=== PATIENT | female | born 1945 | race Two or more races ===

== ENCOUNTER 2018-09-12 07:19 | Inpatient (IN) | payer MEDICARE, OTHER ==
[2018-09-12] VITALS (26 sets, daily range): BP systolic 101–125; BP diastolic 51–63; PULSE 65–100; RESP 11–28; Ht 162.6 cm; Wt 81.2 kg
[~2018-09-12] VITALS: Ht 162.6 cm; Wt 81.2 kg
[~2018-09-12 07:19] MED LIST: ACETAMINOPHEN 500 MG TAB PO ONE; CEFAZOLIN 1 GM/50 ML (PMX) 50 ML IVPB ONE; DEXAMETHASONE 4 MG/ML 1 ML INJ IV ONE; HIP PAIN COCKTAIL VANCO INJ SCH; LACTATED RINGER'S 1,000 ML IV SCH; LANSOPRAZOLE 30 MG CAP PO ONE; ONDANSETRON 4 MG INJ IV ONE; TRANEXAMIC ACID 1GM/100ML(PMX) 100 ML INTRA-OP X1 IVPB ONE; oxyCODONE (CR) 10 MG TAB [oxyCONTIN] PO ONE
[2018-09-12] MEDS ORDERED: LOSA25TA12 PO (08:44)
[2018-09-12] MEDS ORDERED: CLOP75TA27 PO (08:44)
[2018-09-12] MEDS ORDERED: ASPI81TA52 PO (08:45)
[2018-09-12] MEDS ORDERED: ATOR20TA38 PO (08:45)
[2018-09-12] MEDS ORDERED: POLYMYXIN B 500000 UNIT INJ ONE (10:38)
--- NOTE | 2018-09-12 10:53 | HPN ---
Date/Time of Note Date/Time of Note DATE: 09/12/18 TIME: 10:53 Interval H&P Admission Note Pt. seen H&P reviewed: No system changes JAZIEL BRIGHT MD September 12, 2018 10:53
--- NOTE | 2018-09-12 11:02 | PREAC ---
Date/Time of Note Date/Time of Note DATE: 09/12/18 TIME: 11:00 Anesthesia Eval and Record Evaluation Time Pre-Procedure Interview DATE: 09/12/18 TIME: 11:00 Age 73 Sex female NPO: 8 hrs Preoperative diagnosis Right kneee primary OA Planned procedure right knee replacement Past Medical History Past Medical History: Includes Cardio: HTN, Dyslipidemia, CABG, PTCA/Stent Surgery & Anesthesia Issues No known issue Meds Anticoagulation: Yes (stop 15 plavix) Beta Richa within 24 hr: Yes Reason Beta Richa not given: Pt. not on B-Richa Reported Medications Aspirin (Low Dose Aspirin) 81 Mg Tablet.dr, 81 MG PO DAILY, #30 TAB 09/12/18 Atorvastatin Calcium* (Atorvastatin Calcium*) 20 Mg Tablet, 20 MG PO QHS, #30 TAB 09/12/18 Clopidogrel Bisulfate (Clopidogrel) 75 Mg Tablet, 75 MG PO DAILY, #30 TAB 09/12/18 Losartan Potassium* (Losartan Potassium*) 25 Mg Tablet, 25 MG PO BID, TAB 09/12/18 Current Medications Lactated Ringer's 1,000 ml @ 125 mls/hr Q8H IV Last administered on 09/12/18at 09:13; Admin Dose 125 MLS/HR; Start 09/12/18 at 07:00; Stop 09/12/18 at 14:59 Ropivacaine/ Morphine Sulfate/ Clonidine HCl/ Epinephrine/ Ketorolac Tromethamine/ Vancomycin HCl/ Sodium Chloride INTRA-OP INJ ; Start 09/12/18 at 07:00; Stop 09/12/18 at 16:00 Meds reviewed: Yes Allergies Coded Allergies: No Known Allergy (Unverified , 09/12/18) Allergies Reviewed: Yes Labs/Studies Labs Reviewed: Reviewed by anesthesiologist test: N/A Studies: ECG (sr), CXR (nl) Pre-procedure Exam Last vitals Vital Signs Date Temp Pulse Resp B/P (MAP) Pulse Ox O2 O2 Flow FiO2 Time Delivery Rate 09/12/18 97.1 65 16 122/63 99 Room Air 09:44 (82) Airway: Adequate mouth opening Mallampati: Mallampati I Teeth: Normal Lung: Normal Heart: Normal ASA Physical Status ASA physical status: 2 Emergency: None Planned Anesthetic General/MAC: LMA Neuraxial: Spinal Nerve block: Femoral (right) Planned Pain Management Single shot nerve block, Parenteral pain med Pre-operative Attestations Prior to commencing anesthesia and surgery, the patient was re-evaluated, there was verification of: *The patient's identity *The results of appropriate recent lab work and preoperative vital signs *The above evaluation not changing prior to induction *Anesthetic plan, risk benefits, alternative and complications discussed with patient/family; questions answered; patient/family understands, accepts and wishes to proceed. RICH HERNANDEZ MD September 12, 2018 11:02
[2018-09-12] MEDS ORDERED: ETOMIDATE 20 MG INJ ONE (11:06)
[2018-09-12] MEDS ORDERED: MIDAZOLAM 1 MG/ML 2 ML INJ ONE (11:06)
[2018-09-12] MEDS ORDERED: CEFAZOLIN 1 GM INJ ONE (11:06)
[2018-09-12] MEDS ORDERED: FENTAnyl 50 MCG/ML VIAL ONE (11:06)
[2018-09-12] MEDS ORDERED: ONDANSETRON 4 MG INJ ONE (11:07)
[2018-09-12] MEDS ORDERED: morphine SULFATE/PF (10 MG/10 ML) INJ ONE (11:07)
[2018-09-12] MEDS ORDERED: METOCLOPRAMIDE 10 MG INJ ONE (11:07)
[2018-09-12] MEDS ORDERED: TRANEXAMIC ACID 1GM/100ML(PMX) 200 ML ONE (11:14)
[2018-09-12] MEDS ORDERED: DIPHENHYDRAMINE 50 MG INJ IV PRN (11:30)
[2018-09-12] MEDS ORDERED: ONDANSETRON 4 MG INJ IV PRN (11:30)
[2018-09-12] MEDS ORDERED: MEPERIDINE 25 MG INJ IV PRN (11:30)
[2018-09-12] MEDS ORDERED: HYDROmorphONE 1 MG/5 ML IV SYRINGE IV PRN ×3 (11:30)
[2018-09-12] MEDS ORDERED: BACITRACIN 50000 UNITS INJ IRR ONE (11:43)
[2018-09-12] MEDS: TRANEXAMIC ACID 1GM/100ML(PMX) 100 ML PRE-OP X1 IVPB ONE ×2 (11:46→11:47)
[2018-09-12] MEDS ORDERED: ROPIVACAINE 0.2% 20 ML VIAL ONE (12:24)
[2018-09-12] MEDS ORDERED: PHENYLephrine (100 MCG/ML) 10ML SYG ONE (12:33)
--- NOTE | 2018-09-12 12:44 | SIPON ---
Date/Time of Note Date/Time of Note DATE: 09/12/18 TIME: 12:43 Operative Report Preoperative Diagnosis Right Knee Osteoarthritis Postoperative Diagnosis Same Operation/Procedure Performed Right Total Knee Arthroplasty Surgeon Riya Bright MD shop assistant Dash Bullard Second assist: ALEKSANDR PELAYO Anesthesia: spinal Estimated blood loss: 250 - 300 ml's Transfusion Required none Specimen bone Grafts/Implants none Complications none RIYA BRIGHT MD September 12, 2018 12:44
--- NOTE | 2018-09-12 12:50 | OPR ---
Date/Time of Note Date/Time of Note DATE: 09/12/18 TIME: 12:48 Operative Report Free Text/Dictation DATE OF OPERATION: September 12, 2018 SURGEON: Jaziel Bright MD DIESEL MAINTENANCE ELECTRICIAN: Dash AMARO DIESEL MAINTENANCE ELECTRICIAN: LEONA Carlson PREOPERATIVE DIAGNOSIS: Right knee osteoarthritis. POSTOPERATIVE DIAGNOSIS: Right knee osteoarthritis. PROCEDURES PERFORMED: Right total knee arthroplasty, CPT code 81295. ANESTHESIOLOGIST: Dr. Quinn ANESTHESIA: Spinal. ESTIMATED BLOOD LOSS: 250 mL. COMPLICATIONS: None. SPECIMENS: Resected bone. DISPOSITION: PACU in stable condition. TOURNIQUET TIME: 33 minutes at 250 mmHg. IMPLANT USED: [employer] size 3 Alondra tibial baseplate, size 5 narrow posterior stabilized Oxinium femur, size 9 mm high flexion polyethylene, size 35 mm patella. INDICATION FOR PROCEDURE: This is an 73-year-old female with end-stage osteoarthritis of the right knee who had failed nonoperative management. Risks, benefits, alternatives of surgical intervention were discussed with the patient and informed consent was obtained. The risks of surgery include but are not limited to infection, deep venous thrombosis, pulmonary embolism, damage to nerves and blood vessels, numbness around incision site, stiffness of knee, need for total knee manipulation under anesthesia, need for blood transfuion, heart attack, stroke, risks associated with anesthesia, implant loosening, wear of prosthesis, need for revision surgery, and . DESCRIPTION OF PROCEDURE: The patient was met in the preoperative suite. The correct operative site was confirmed and marked. The patient was then brought into operating room. After induction of anesthesia, the patient was placed in the supine position on the operating room table. A tourniquet was applied to right upper thigh. The right lower extremity was prepped and draped in the usual sterile fashion. Before starting, a timeout was taken to identify the correct operative site and confirm preoperative antibiotics consisting of 1 g of IV Ancef, along with 1 g of tranexamic acid were administered. At this point, the right leg was elevated and exsanguinated with an Esmarch and tourniquet was then insufflated for the above noted time. A midline incision was made and median parapatellar arthrotomy was then completed. The lateral patellar r etinacular ligaments were released. A sleeve of tissue was released from the medial proximal tibia. The cruciate ligaments and the menisci were then excised. At this point, the custom distal femur cutting block was then pinned and 9.5 mm was resected from the distal femur. The 4-in-1 cutting block, size 5 was then placed. An alea wing was used to confirm that notching of the anterior cortex of the femur would not occur. The anterior and posterior condylar cuts were completed followed by the anterior and posterior chamfer cuts. The osteophytes were then removed with a rongeur. At this point, the tibia was subluxed anteriorly. Appropriate retractors were placed. The custom tibial cutting block was then pinned. The drop was used to ensure the correct alignment. Approximately 11 mm was resected off the lateral tibial plateau and 6 mm off the medial tibial plateau. Osteophytes were then removed. At this point, the flexion extension gaps were checked with a 9 mm gap loom checker and noted to be equal. Next, trial 5 narrow femur was then pinned and the box cut was then completed. The tibia was then subluxed anteriorly and measured to size 3. The tibial tray was then pinned and a keel was then punched. The trial components were placed with a 9 mm polyethylene and noted to have full extension and greater than 120 degrees of flexion. The patella was then subluxed laterally and sized to 22 mm. Approximately, 8 mm was resected. The patellar was sized to 35 mm. The button was placed and noted to have excell ent patellar tracking. The trial components were removed. All bony surfaces were pulse lavaged and dried. The appropriate size components were then cemented and the knee was held in extension with a 9 mm trial polyethylene until the cement cured. Once the cement had cured, the trial polyethylene was removed and the appropriate size polyethylene was then placed. The tranexamic acid was redosed. The cocktail was then injected. The extensor mechanism was closed using #1 Stratafix and the subcutaneous tissue with 2-0 Vicryl and the skin with 4-0 Monocryl. Steri-Strips were applied along with a sterile dressing. There were no complications. The patient was transferred to PACU in stable condition. POSTOPERATIVE CARE: The patient will be weightbearing as tolerated. The patient will work with physical therapy, and will receive two additional doses of IV antibiotics along with aspirin 81 mg p.o. b.i.d. for 6 weeks. Upon discharge, patient will follow up in my office within 2 weeks postoperatively. JAZIEL BRIGHT MD September 12, 2018 12:50
[2018-09-12] MEDS: GABAPENTIN 100 MG CAP PO SCH ×2 (13:00→21:11)
[2018-09-12] MEDS ORDERED: NACL 0.9% 3 ML SYG IV SCH (13:00)
[2018-09-12] MEDS ORDERED: NALOXONE (0.4 MG/ML) INJ IV PRN (13:00)
[2018-09-12] MEDS ORDERED: KETOROLAC 15 MG INJ IV PRN (13:00)
[2018-09-12] MEDS: CEFAZOLIN 2 GM/50 ML (PMX) 50 ML IVPB SCH ×2 (13:52→21:08)
[2018-09-12] MEDS: ONDANSETRON 4 MG INJ IV SCH ×2 (14:07→19:54)
--- NOTE | 2018-09-12 16:44 | CONS ---
Assessment/Plan Assessment/Plan Hospital Course (Demo Recall) 73 yo F admitted for elective RTKA for severe R OA being admitted postop for whom we are consulted for management of medical conditions: 1. HTN 2. Dyslipidemia 3. CAD s.p CABG plan: recommend low cholesterol, low fat diet resume home meds and titrate as indicated serial labs continue routine post op per otrtho further recommendations per course Thanks for the Consult. We will follow with you. Consultation Date/Type/Reason Admit Date/Time September 12, 2018 at 07:23 Date/Time of Note DATE: 09/12/18 TIME: 16:36 Hx of Present Illness 70-year-old female who was admitted for elective right total knee arthroplasty due to end-stage osteoarthritis of the right knee that had failed nonoperative management. She is status post surgery, and is being admitted to the medical surgical floor for postoperative care and interventions. We are being consulted for management of her medical conditions. Medical problems include hypertensio n, dyslipidemia, coronary artery disease status post CABG in the past. At this time patient has no new complaints or concerns, she is lethargic from surgery. . 12 point review if systems was done and pertinent findings are as noted. Past Medical History Medical History: coronary artery disease, diabetes, high cholesterol, hypertension Home Meds Reported Medications Aspirin (Low Dose Aspirin) 81 Mg Tablet.dr, 81 MG PO DAILY, #30 TAB 09/12/18 Atorvastatin Calcium* (Atorvastatin Calcium*) 20 Mg Tablet, 20 MG PO QHS, #30 TAB 09/12/18 Clopidogrel Bisulfate (Clopidogrel) 75 Mg Tablet, 75 MG PO DAILY, #30 TAB 09/12/18 Losartan Potassium* (Losartan Potassium*) 25 Mg Tablet, 25 MG PO BID, TAB 09/12/18 Medications Current Medications Hydromorphone HCl (Dilaudid) 0.2 mg PACU PRN IV MILD PAIN 1-3; Start 09/12/18 at 11:30; Stop 09/12/18 at 17:00 Hydromorphone HCl (Dilaudid) 0.4 mg PACU PRN IV MOD PAIN 4-6; Start 09/12/18 at 11:30; Stop 09/12/18 at 17:00 Hydromorphone HCl (Dilaudid) 0.6 mg PACU PRN IV SEVERE PAIN 7-10; Start 09/12/18 at 11:30; Stop 09/12/18 at 17:00 Ondansetron HCl (Zofran Inj) 4 mg PACU ORDER PRN IV NAUSEA/VOMITING; Start 09/12/18 at 11:30; Stop 09/12/18 at 17:00 Meperidine HCl (Demerol) 25 mg PACU ORDER PRN IV .RIGORS; Start 09/12/18 at 11:30; Stop 09/12/18 at 17:00 Diphenhydramine HCl (Benadryl) 25 mg PACU ORDER PRN IV .PRURITUS; Start 09/12/18 at 11:30; Stop 09/12/18 at 17:00 IV Flush (NS 3 ml) 3 ml PER PROTOCOL IV ; Start 09/12/18 at 13:00 Oxycodone HCl (Roxicodone) 5 mg Q4H PRN PO .PAIN; Start 09/12/18 at 13:00 Ketorolac Tromethamine (Toradol) 15 mg Q6H PRN IV .PAIN; Start 09/12/18 at 13:00 Ondansetron HCl (Zofran Inj) 4 mg Q6H IV Last administered on 09/12/18at 14:07; Admin Dose 4 MG; Start 09/12/18 at 13:00; Stop 09/13/18 at 07:01 Cefazolin Sodium/ Dextrose 50 ml @ 100 mls/hr Q8H IVPB Last administered on 09/12/18at 13:52; Admin Dose 100 MLS/HR; Start 09/12/18 at 13:00; Stop 09/13/18 at 05:29 Celecoxib (Celebrex) 100 mg BID PO ; Start 09/13/18 at 09:00 Gabapentin (Neurontin) 100 mg TID PO ; Start 09/12/18 at 13:00 Pantoprazole (Protonix Tab) 40 mg DAILY@06 PO ; Start 09/14/18 at 06:00 Naloxone HCl (Narcan) 0.2 mg Q2M PRN IV .RESP RATE; Start 09/12/18 at 13:00 Aspirin (Halfprin) 81 mg BID PO ; Start 09/13/18 at 09:00 Allergies: Coded Allergies: No Known Allergy (Unverified , 09/12/18) Past Surgical History Right total knee arthroplasty today Past Surgical Hx: coronary bypass surgery Family History Significant Family History: no pertinent family hx Social History Alcohol Use: none Smoking Status: Never smoker Drug Use: none Exam/Review of Systems Exam Vitals Vital Signs Date Temp Pulse Resp B/P (MAP) Pulse Ox O2 O2 Flow FiO2 Time Delivery Rate 09/12/18 92 14 106/55 97 Nasal 3.0 14:19 (72) Cannula 09/12/18 98.0 13:37 Constitutional: other Head: normocephalic Eyes: PERRL Respiratory: clear to auscultation, diminished breath sounds Cardiovascular: regular rate and rhythm; No murmurs/extra sounds Gastrointestinal: soft, non-tender, bowel sounds Musculoskeletal: other (Right lower extremity encased in splint) Neurological: lethargic Imaging Imaging POSTOPERATIVE DIAGNOSIS: Right knee osteoarthritis. PROCEDURES PERFORMED: Right total knee arthroplasty, CPT code 77914. ANESTHESIOLOGIST: Dr. Quinn ANESTHESIA: Spinal. ESTIMATED BLOOD LOSS: 250 mL. COMPLICATIONS: None. PROCEDURE: XR Chest. CLINICAL INDICATION: Preoperative examination TECHNIQUE: Single frontal radiograph of the chest. COMPARISON: No prior FINDINGS: Postoperative changes from open thoracic surgery with sternotomy wires. The lungs are clear. No pleural effusion. No pneumothorax. Heart size is magnified. Vascular calcifications of the aorta are present compatible with atherosclerosis. IMPRESSION: No acute air space infiltrates. RPTAT: AADD .Pedro Odom MD, Date Time Electronically viewed and signed by .Pedro Odom MD, on 09/12/2018 09:17 .B/ CC: JAZIEL BRIGHT MD [id number] Medications Medication Current Medications Hydromorphone HCl (Dilaudid) 0.2 mg PACU PRN IV MILD PAIN 1-3; Start 09/12/18 at 11:30; Stop 09/12/18 at 17:00 Hydromorphone HCl (Dilaudid) 0.4 mg PACU PRN IV MOD PAIN 4-6; Start 09/12/18 at 11:30; Stop 09/12/18 at 17:00 Hydromorphone HCl (Dilaudid) 0.6 mg PACU PRN IV SEVERE PAIN 7-10; Start 09/12/18 at 11:30; Stop 09/12/18 at 17:00 Ondansetron HCl (Zofran Inj) 4 mg PACU ORDER PRN IV NAUSEA/VOMITING; Start 09/12/18 at 11:30; Stop 09/12/18 at 17:00 Meperidine HCl (Demerol) 25 mg PACU ORDER PRN IV .RIGORS; Start 09/12/18 at 11:30; Stop 09/12/18 at 17:00 Diphenhydramine HCl (Benadryl) 25 mg PACU ORDER PRN IV .PRURITUS; Start 09/12/18 at 11:30; Stop 09/12/18 at 17:00 IV Flush (NS 3 ml) 3 ml PER PROTOCOL IV ; Start 09/12/18 at 13:00 Oxycodone HCl (Roxicodone) 5 mg Q4H PRN PO .PAIN; Start 09/12/18 at 13:00 Ketorolac Tromethamine (Toradol) 15 mg Q6H PRN IV .PAIN; Start 09/12/18 at 13:00 Ondansetron HCl (Zofran Inj) 4 mg Q6H IV Last administered on 09/12/18at 14:07; Admin Dose 4 MG; Start 09/12/18 at 13:00; Stop 09/13/18 at 07:01 Cefazolin Sodium/ Dextrose 50 ml @ 100 mls/hr Q8H IVPB Last administered on 09/12/18at 13:52; Admin Dose 100 MLS/HR; Start 09/12/18 at 13:00; Stop 09/13/18 at 05:29 Celecoxib (Celebrex) 100 mg BID PO ; Start 09/13/18 at 09:00 Gabapentin (Neurontin) 100 mg TID PO ; Start 09/12/18 at 13:00 Pantoprazole (Protonix Tab) 40 mg DAILY@06 PO ; Start 09/14/18 at 06:00 Naloxone HCl (Narcan) 0.2 mg Q2M PRN IV .RESP RATE; Start 09/12/18 at 13:00 Aspirin (Halfprin) 81 mg BID PO ; Start 09/13/18 at 09:00 RUPERTO ROSAS September 12, 2018 16:44
[2018-09-12] MEDS ORDERED: ZOLPIDEM 5 MG TAB PO PRN (19:00)
[2018-09-12] MEDS: LOSARTAN 25 MG TAB PO SCH (21:11)
[2018-09-12] MEDS: ATORVASTATIN 20 MG TAB PO SCH (21:41)
[2018-09-13] MEDS: ONDANSETRON 4 MG INJ IV SCH ×2 (01:16→06:03)
[2018-09-13 02:09] VITALS: BP 107/58; PULSE 101; RESP 18
[2018-09-13] MEDS: CEFAZOLIN 2 GM/50 ML (PMX) 50 ML IVPB SCH (05:03)
[2018-09-13 07:42] VITALS: BP 111/54; PULSE 93; RESP 18
[2018-09-13] MEDS: LOSARTAN 25 MG TAB PO SCH (08:54)
[2018-09-13] MEDS: GABAPENTIN 100 MG CAP PO SCH ×3 (08:54→20:23)
[2018-09-13] MEDS: oxyCODONE 5 MG TAB PO PRN ×2 (08:54→14:27)
[2018-09-13] MEDS ORDERED: CELECOXIB 100 MG CAP PO SCH (09:00)
[2018-09-13] MEDS ORDERED: ASPIRIN (EC) 81 MG TAB PO SCH (09:00)
--- NOTE | 2018-09-13 12:43 | CONS ---
Assessment/Plan Assessment/Plan Hospital Course (Demo Recall) 73 yo F admitted for elective RTKA for severe R OA being admitted postop for wh om we are consulted for management of medical conditions: 1. HTN: improved control 2. Dyslipidemia 3. CAD s.p CABG 4. Hypochromic anemia: No indication for transfusion, likely chronic 5. Chronic kidney disease, KELLY on likely 6. Mild hyperkalemia: May be medication induced, patient on losartan. plan: Will order iron profile to rule out iron deficiency concern hypochromic anemia Repeat potassium levels now and intervene as indicated Recommend avoiding NSAIDs and other nephrotoxic medication in view of CKD We will also get renal ultrasound to rule out obstructive courses. We will also hold home NATALIE inhibitor for now and use beta-maxine therapy for blood pressure control due to renal function. Recommend use of heparin instead of twice daily aspirin again in view of renal insufficiency for DVT prophylaxis. Thanks for the Consult. We will follow with you. Consultation Date/Type/Reason Admit Date/Time September 12, 2018 at 07:23 Initial Consult Date Date/Time of Note DATE: 09/13/18 TIME: 12:37 24 HR Interval Summary Free Text/Dictation No new complaints Exam/Review of Systems Exam Vitals Vital Signs Date Temp Pulse Resp B/P (MAP) Pulse Ox O2 O2 Flow FiO2 Time Delivery Rate 09/13/18 98.0 93 18 111/54 100 Room Air 07:42 (73) 09/12/18 2.0 17:20 Intake and Output 09/12/18 09/12/18 09/13/18 1414:59 22:59 06:59 IntakeIntake Total 1450 ml 1050 ml 50 ml OutputOutput Total 50 ml BalanceBalance 1400 ml 1050 ml 50 ml Exam Constitutional: alert, oriented Head: atraumatic, normocephalic Neck: non-tender, supple Respiratory: clear to auscultation Cardiovascular: regular rate and rhythm Gastrointestinal: S/ NT / ND / +BS Extremities: no edema, good radial pulses Results Result Diagram: 09/13/18 0419 09/13/18 0419 Results 24hrs Laboratory Tests Test 09/12/18 17:02 09/13/18 04:19 09/13/18 06:53 Sodium Level 140 142 Potassium Level 5.1 5.3 H Chloride Level 108 107 Carbon Dioxide Level 23 27 Anion Gap 9 8 Blood Urea Nitrogen 23 H 30 H Creatinine 1.03 H 1.03 H Est Glomerular Filtrat Rate mL/min Glucose Level 175 134 # Calcium Level 8.7 8.9 White Blood Count 10.4 Red Blood Count 4.46 Hemoglobin 9.2 L Hematocrit 30.3 L Mean Corpuscular Volume 67.9 L Mean Corpuscular Hemoglobin 20.6 L Mean Corpuscular 30.4 L Hemoglobin Concent Red Cell Distribution Width 14.8 H Platelet Count 229 Mean Platelet Volume 11.2 H Immature Granulocytes % 0.400 Neutrophils % 86.3 H Lymphocytes % 7.3 L Monocytes % 5.9 Eosinophils % 0.0 Basophils % 0.1 Nucleated Red Blood Cells % 0.0 Immature Granulocytes # 0.040 H Neutrophils # 8.9 H Lymphocytes # 0.8 Monocytes # 0.6 Eosinophils # 0.0 Basophils # 0.0 Nucleated Red Blood Cells # 0.0 Magnesium Level 2.0 Lab Scanned Report REFERENCE LAB Medications Medication Current Medications IV Flush (NS 3 ml) 3 ml PER PROTOCOL IV ; Start 09/12/18 at 13:00 Oxycodone HCl (Roxicodone) 5 mg Q4H PRN PO .PAIN Last administered on 09/13/18 08:54; Admin Dose 5 MG; Start 09/12/18 at 13:00 Ketorolac Tromethamine (Toradol) 15 mg Q6H PRN IV .PAIN Last administered on 09/13/18at 10:56; Admin Dose 15 MG; Start 09/12/18 at 13:00 Celecoxib (Celebrex) 100 mg BID PO Last administered on 09/13/18at 08:54; Admin Dose 100 MG; Start 09/13/18 at 09:00 Gabapentin (Neurontin) 100 mg TID PO Last administered on 09/13/18 08:54; Admin Dose 100 MG; Start 09/12/18 at 13:00 Pantoprazole (Protonix Tab) 40 mg DAILY@06 PO ; Start 09/14/18 at 06:00 Naloxone HCl (Narcan) 0.2 mg Q2M PRN IV .RESP RATE; Start 09/12/18 at 13:00 Aspirin (Halfprin) 81 mg BID PO Last administered on 09/13/18at 08:54; Admin Dose 81 MG; Start 09/13/18 at 09:00 Atorvastatin Calcium (Lipitor) 20 mg QHS PO Last administered on 09/12/18at 21:41; Admin Dose 20 MG; Start 09/12/18 at 21:00 Losartan Potassium (Cozaar) 25 mg BID PO Last administered on 09/13/18 08:54; Admin Dose 25 MG; Start 09/12/18 at 21:00 Zolpidem Tartrate (Ambien) 5 mg HS PRN PO INSOMNIA Last administered on 09/12/18 21:41; Admin Dose 5 MG; Start 09/12/18 at 19:00 RUPERTO ROSAS September 13, 2018 12:43
[2018-09-13 14:00] VITALS: BP 105/57; PULSE 90; RESP 18
[2018-09-13] MEDS ORDERED: BISACODYL (EC) 5 MG TAB PO ONE (14:30)
[2018-09-13] MEDS ORDERED: DIPHENHYDRAMINE 25 MG CAP PO PRN (14:30)
--- NOTE | 2018-09-13 17:28 | PAC ---
Date/Time of Note Date/Time of Note DATE: 09/13/18 TIME: 17:28 Post-Anesthesia Notes Post-Anesthesia Note Last documented vital signs Vital Signs Date Temp Pulse Resp B/P (MAP) Pulse Ox O2 O2 Flow FiO2 Time Delivery Rate 09/13/18 98.0 93 18 111/54 100 Room Air 07:42 (73) 09/12/18 2.0 17:20 Activity: WNL Respiratory function: WNL Cardiovascular function: WNL Mental status: Baseline Pain reasonably controlled: Yes Hydration appropriate: Yes Nausea/Vomiting absent: No RICH HERNANDEZ MD September 13, 2018 17:28
--- NOTE | 2018-09-13 17:29 | OPPN ---
Date/Time of Note Date/Time of Note DATE: 09/13/18 TIME: 17:28 Anesthesia Follow up Anesthesia Follow up Last documented vital signs Vital Signs Date Temp Pulse Resp B/P (MAP) Pulse Ox O2 O2 Flow FiO2 Time Delivery Rate 09/13/18 98.0 93 18 111/54 100 Room Air 07:42 (73) 09/12/18 2.0 17:20 Respiratory function: WNL Cardiovascular function: WNL Comments A 73 female s/p GA, spinal with duramorph for post op apin per surgeon POD#1 is doiung fine. No pain, itching, N/V, headache, neural deficit. care per surgery RICH HERNANDEZ MD September 13, 2018 17:29
[2018-09-13] MEDS: ATORVASTATIN 20 MG TAB PO SCH (20:23)
[2018-09-13] MEDS: METOPROLOL 25 MG TAB PO SCH (20:23)
[2018-09-13] MEDS: HEPARIN 5,000 UNIT/1 ML VIAL SC SCH (20:25)
[2018-09-13 20:26] VITALS: BP 118/65; PULSE 78; RESP 20
[2018-09-14 02:22] VITALS: BP 124/60; PULSE 88; RESP 18
[2018-09-14] MEDS: oxyCODONE 5 MG TAB PO PRN ×3 (05:39→13:18)
[2018-09-14] MEDS: PANTOPRAZOLE (EC) 40 MG TAB PO SCH ×2 (05:40→08:37)
[2018-09-14 08:18] VITALS: BP 140/71; PULSE 87; RESP 18
[2018-09-14] MEDS: METOPROLOL 25 MG TAB PO SCH (08:38)
[2018-09-14] MEDS: GABAPENTIN 100 MG CAP PO SCH ×2 (08:47→13:17)
[2018-09-14] MEDS: HEPARIN 5,000 UNIT/1 ML VIAL SC SCH (09:00)
[2018-09-14] MEDS ORDERED: POLYETHYLENE GLYCOL 17 GM PACKET PO SCH (09:00)
[2018-09-14] MEDS ORDERED: CLOPIDOGREL 75 MG TAB PO SCH (09:00)
[2018-09-14] MEDS ORDERED: ASPIRIN (EC) 81 MG TAB PO SCH (09:00)
[2018-09-14 14:00] VITALS: BP 141/65; PULSE 89
[2018-09-14] MEDS ORDERED: METO-448 PO (14:38)
--- NOTE | 2018-09-14 14:41 | PN ---
Date/Time of Note Date/Time of Note DATE: 09/14/18 TIME: 14:36 Assessment/Plan VTE Prophylaxis Risk score (from Ns)>0 risk: 8 SCD applied (from Ns): Yes Pharmacological prophylaxis: heparin Lines/Catheters IV Catheter Type (from Nrs): Peripheral IV Urinary Cath still in place: No Assessment/Plan Hospital Course S: no new complaints, planned for discharge today by Ortho Objective: Constitutional: alert, oriented Head: atraumatic, normocephalic Neck: non-tender, supple Respiratory: clear to auscultation Cardiovascular: regular rate and rhythm Gastrointestinal: S/ NT / ND / +BS Extremities: no edema, good radial pulses assessment and plan: 73 yo F admitted for elective RTKA for severe R OA being admitted postop for whom we are consulted for management of medical conditions: 1. HTN: losartan chaged to metoprolol for hyperkalemia, good BP control 2. Dyslipidemia : on statin 3. CAD s.p CABG : continue plavix only for now, resume asa once cleared by ortho 4. Hypochromic anemia: No indication for transfusion, likely chronic 5. Chronic kidney disease: at baseline 6. Mild hyperkalemia: May be medication induced, patient on losartan, resolved plan: continue current regimen cleared for discharge from a medical standpoint Thanks for the Consult. We will follow with you. Result Diagram: 09/14/18 0424 09/14/18 0423 Results 24hrs Laboratory Tests Test 09/14/18 04:23 09/14/18 04:24 Sodium Level 140 Potassium Level 4.7 Chloride Level 105 Carbon Dioxide Level 30 Anion Gap 5 Blood Urea Nitrogen 32 H Creatinine 1.04 H Est Glomerular Filtrat Rate mL/min Glucose Level 99 Calcium Level 8.6 White Blood Count 7.9 # Red Blood Count 4.15 L Hemoglobin 8.5 L Hematocrit 27.8 L Mean Corpuscular Volume 67.0 L Mean Corpuscular Hemoglobin 20.5 L Mean Corpuscular Hemoglobin Concent 30.6 L Red Cell Distribution Width 14.6 H Platelet Count 223 Mean Platelet Volume 10.9 H Immature Granulocytes % 0.300 Neutrophils % 60.4 Lymphocytes % 28.7 Monocytes % 9.1 Eosinophils % 1.0 Basophils % 0.5 Nucleated Red Blood Cells % 0.0 Immature Granulocytes # 0.020 Neutrophils # 4.8 Lymphocytes # 2.3 Monocytes # 0.7 Eosinophils # 0.1 Basophils # 0.0 Nucleated Red Blood Cells # 0.0 Exam/Review of Systems Exam Vitals Vital Signs Date Temp Pulse Resp B/P (MAP) Pulse Ox O2 O2 Flow FiO2 Time Delivery Rate 09/14/18 98.8 89 141/65 99 14:00 (90) 09/14/18 18 08:18 09/13/18 Room Air 20:26 09/12/18 2.0 17:20 Intake and Output 09/13/18 09/13/18 09/14/18 1515:00 23:00 07:00 IntakeIntake Total 200 ml 800 ml BalanceBalance 200 ml 800 ml Results Results 24hrs Laboratory Tests Test 09/14/18 04:23 09/14/18 04:24 Sodium Level 140 Potassium Level 4.7 Chloride Level 105 Carbon Dioxide Level 30 Anion Gap 5 Blood Urea Nitrogen 32 H Creatinine 1.04 H Est Glomerular Filtrat Rate mL/min Glucose Level 99 Calcium Level 8.6 White Blood Count 7.9 # Red Blood Count 4.15 L Hemoglobin 8.5 L Hematocrit 27.8 L Mean Corpuscular Volume 67.0 L Mean Corpuscular Hemoglobin 20.5 L Mean Corpuscular Hemoglobin Concent 30.6 L Red Cell Distribution Width 14.6 H Platelet Count 223 Mean Platelet Volume 10.9 H Immature Granulocytes % 0.300 Neutrophils % 60.4 Lymphocytes % 28.7 Monocytes % 9.1 Eosinophils % 1.0 Basophils % 0.5 Nucleated Red Blood Cells % 0.0 Immature Granulocytes # 0.020 Neutrophils # 4.8 Lymphocytes # 2.3 Monocytes # 0.7 Eosinophils # 0.1 Basophils # 0.0 Nucleated Red Blood Cells # 0.0 Medications Medication Current Medications IV Flush (NS 3 ml) 3 ml PER PROTOCOL IV ; Start 09/12/18 at 13:00 Oxycodone HCl (Roxicodone) 5 mg Q4H PRN PO .PAIN Last administered on 09/14/18at 13:18; Admin Dose 5 MG; Start 09/12/18 at 13:00 Gabapentin (Neurontin) 100 mg TID PO Last administered on 09/14/18at 13:17; A dmin Dose 100 MG; Start 09/12/18 at 13:00 Pantoprazole (Protonix Tab) 40 mg DAILY@06 PO Last administered on 09/14/18 08:37; Admin Dose 40 MG; Start 09/14/18 at 06:00 Naloxone HCl (Narcan) 0.2 mg Q2M PRN IV .RESP RATE; Start 09/12/18 at 13:00 Atorvastatin Calcium (Lipitor) 20 mg QHS PO Last administered on 09/13/18 20:23; Admin Dose 20 MG; Start 09/12/18 at 21:00 Zolpidem Tartrate (Ambien) 5 mg HS PRN PO INSOMNIA Last administered on 09/12/18 21:41; Admin Dose 5 MG; Start 09/12/18 at 19:00 Heparin Sodium (Porcine) (Heparin (5000 Units/1ml)) 5,000 unit BID SC Last administered on 09/13/18 20:25; Admin Dose 5,000 UNIT; Start 09/13/18 at 21:00 Metoprolol Tartrate (Lopressor) 25 mg BID PO Last administered on 09/14/18 08:38; Admin Dose 25 MG; Start 09/13/18 at 21:00 Clopidogrel Bisulfate (plaVIX) 75 mg DAILY PO Last administered on 09/14/18 08:36; Admin Dose 75 MG; Start 09/14/18 at 09:00 Polyethylene Glycol (Miralax) 17 gm DAILY PO Last administered on 09/14/18 08:46; Admin Dose 17 GM; Start 09/14/18 at 09:00 Diphenhydramine HCl (Benadryl) 25 mg Q6H PRN PO ITCHING; Start 09/13/18 at 14:30 RUPERTO ROSAS September 14, 2018 14:41
--- NOTE | 2018-09-14 14:43 | PDOCDIS ---
Discharge Instructions CONDITION [id number] Patient Condition: [id number] Stable HOME CARE INSTRUCTIONS: [id number] Diet Instructions: [id number] Low Fat /Cholesterol ACTIVITY: [id number] Activity Restrictions: [id number] Rest between Activity Avoid heavy lifting Do not Drive Do not operate Power Tool Avoid Heavy Housework [id number] Bathing Restrictions: [id number] Tub Bath FOLLOW UP/APPOINTMENTS Follow-up Plan Follow-up with the orthopedic surgeon in 2 weeks. I have changed your blood pressure medications because of your kidneys and you had high potassium when you came in. Please let your primary care doctor now. A new prescription has been faxed for you to your pharmacy. . RUPERTO ROSAS September 14, 2018 14:43
== END 2018-09-14 15:20 | disposition home health service (06) | DRG 470 ==
LOC: REC 07:23 → MS1 14:06
PROVIDERS: ADMIT Orthopaedic Surgery Adult Reconstructive Orthopaedic Surgery; ATTEND Orthopaedic Surgery Adult Reconstructive Orthopaedic Surgery
PROC: 0SRC069 Replacement of Right Knee Joint with Oxidized Zirconium on Polyethylene Synthetic Substitute, Cemented, Open Approach (ICD-10-PCS; principal; 2018-09-12 10:30)
DX: M17.11 Unilateral primary osteoarthritis, right knee (principal); I25.10 Atherosclerotic heart disease of native coronary artery without angina pectoris; Z95.1 Presence of aortocoronary bypass graft; E78.5 Hyperlipidemia, unspecified; I12.9 Hypertensive chronic kidney disease with stage 1 through stage 4 chronic kidney disease, or unspecified chronic kidney disease; N18.9 Chronic kidney disease, unspecified; E66.9 Obesity, unspecified; Z68.30 Body mass index [BMI] 30.0-30.9, adult; D50.9 Iron deficiency anemia, unspecified; E87.5 Hyperkalemia; Z79.82 Long term (current) use of aspirin
CPT/HCPCS: 71045; 73560; 76775; 80048; 83735; 85025; 88304; 88311; 97110; 97116; 97161; C1713; C1776; J0171; J0690; J1100; J1644; J1885; J2250; J2274; J2370; J2405; J2765; J2795; J3010; J3370